=== PATIENT | female | born 1960 | race Caucasian/White ===

== ENCOUNTER 2022-01-08 17:24 | Emergency (ER) | payer OTHER, SELFPAY ==
[2022-01-08 17:45] VITALS: BP 189/109; PULSE 124; RESP 18; TEMP 36.9; O2SAT 99
--- NOTE | 2022-01-08 17:55 | PC.NURSE ---
1743 patient upset because she is worried her dog will be put down
[2022-01-08 17:57] VITALS: BP 189/109
[2022-01-08] MEDS: TETANUS,DIPHTHERIA,AC PERTUSSIS ADULT (0.5 ML) BOOSTRIX IM (18:48)
[2022-01-08 19:04] VITALS: BP 150/90; PULSE 104
--- NOTE | 2022-01-08 19:04 | ED.GENADULT ---
HPI - General Adult General Chief complaint: Skin/Abscess/Foreign Body Stated complaint: dog bite Time Seen by Provider: 01/08/22 17:31 Source: patient Mode of arrival: ambulatory Limitations: no limitations History of Present Illness HPI narrative: Patient presents for evaluation of lacerations to the face x2. She states she was cooking chicken and her dog jumped up to the food. She attempted to pull the chicken away and the dog bit her in the face. She now has a laceration to the left side of the face below the eye and another to let lower lip. She denies any significant pain. She states that the dog has never bit a human before. She called her friend, who is the dog's service dog trainer, and they came and took the dog to their house. Pt states her team was out of town but is on the way back home. She drove herself here for further evaluation. She states that dog is UTD on vaccinations. Pt believes her last tetanus was between 5-10 years ago. She is not diabetic. No additional complaints or concerns. Related Data Home Medications Medication Instructions Recorded Confirmed hydroxychloroquine 200 mg PO DAILY 01/08/22 01/08/22 levothyroxine 125 mcg PO DAILY 01/08/22 01/08/22 venlafaxine [Effexor XR] 37.5 mg PO DAILY 01/08/22 01/08/22 Allergies Allergy/AdvReac Type Severity Reaction Status Date / Time Penicillins Allergy Mild Hives Verified 01/08/22 17:54 Review of Systems Review of Systems: CONSTITUTIONAL: Denies fever, chills, or sweats. EYES: Denies visual changes, redness, or discharge. ENT: Reports lip laceration. Denies rhinorrhea, congestion, sore throat, or otalgia. CARDIOVASCULAR: Denies chest pain, palpitations, or edema. RESPIRATORY: Denies cough or dyspnea. GASTROINTESTINAL: Denies abdominal pain, nausea, vomiting, or diarrhea. GENITOURINARY: Denies dysuria or hematuria. SKIN: Reports left sided facial laceration. Denies rash or itching. MUSCULOSKELETAL: Denies back pain, joint pain, or myalgia. NEUROLOGIC: Denies headache, numbness, dizziness, or weakness. PSYCHIATRIC: Denies anxiety or depression. [facility] Past Medical History Medical History (Updated 01/08/22 @ 19:28 by LIUDMILA Stevenson, ) Depression Hypothyroidism Rheumatoid arthritis Surgical History Surgical History History of tubal ligation Hx of cholecystectomy Family History Family History Mother Family history non-contributory Social History Social History (Updated 01/08/22 @ 19:14 by José Miguel Dumas [facility], ) Smoking status: Never smoker Substance use: never Substance use type: does not use Living arrangements: with family Gender identity (if verbalized by the patient): Female Sexual Orientation (if Verbalized by the Patient): Straight or Heterosexual Spiritual care concerns: No Exam Narrative: GENERAL: Well-appearing, well-nourished, and in no acute distress. HEAD: Normocephalic EYES: PERRLA and EOMI. ENT: Nares clear, no rhinorrhea or epistaxis. Mucous membranes moist. Approximately 3 cm laceration to left lower lip extending through the myrna border and inferior to the lower lip but not into the chin. Oropharynx without tonsillar hypertrophy exudate or other lesions. Bilateral TMs pearly oleary nonbulging NECK: Supple. No adenopathy or masses. No carotid bruits or JVD CHEST: Clear to auscultation. No respiratory distress. No wheezes rales or rhonchi HEART: Regular rate and rhythm. No murmur heard. Normal peripheral pulses. ABDOMEN: Soft, nontender, nondistended, normal active bowel sounds. EXTREMITIES: Normal range of motion. No edema. SKIN: Approximately 2 cm laceration in flap formation to left side of the face, inferior to the left eye. Warm, dry, no rash. NEURO: No focal deficits. Alert and oriented x3. PSYCH: Normal mood and affect. Course Course Emergency Course: This i
== END 2022-01-08 19:04 | disposition home or self-care (01) ==
PROVIDERS: Emergency Provider Nurse Practitioner; PCP Family Medicine
DX: S01.511A Laceration without foreign body of lip, initial encounter (principal); S01.81XA Laceration without foreign body of other part of head, initial encounter; W54.0XXA Bitten by dog, initial encounter; Z23 Encounter for immunization; E03.9 Hypothyroidism, unspecified; M06.9 Rheumatoid arthritis, unspecified; F32.A Depression, unspecified
CPT/HCPCS: 12013; 90471; 90715; 99213; G0463

== ENCOUNTER 2022-01-14 11:47 | Emergency (ER) | payer OTHER, SELFPAY ==
--- NOTE | ~2022-01-14 | XR_ITS ---
EXAMINATION: XR chest 2V 01/14/2022 13:21 INDICATION: PROCEDURE: COMPARISON: FINDINGS: Bibasilar atelectasis. No focal pneumonia, edema, pleural effusion or pneumothorax. The car diomediastinal silhouette is within normal limits. There are no pleural effusions. There is no pneu mothorax suspected. IMPRESSION: 1: Bibasilar atelectasis. Reviewed, dictated and finalized at location B. SETTER IMPRESSION: 1: Bibasilar atelectasis.
[2022-01-14 11:51] VITALS: BP 198/100; PULSE 80; RESP 16; TEMP 36.7; O2SAT 99
[2022-01-14 12:30] VITALS: BP 164/99; PULSE 78; RESP 15; O2SAT 100
--- NOTE | 2022-01-14 12:45 | ED.RECABL ---
HPI - Recheck/Abnormal Lab/Rx General Chief Complaint: Recheck/Abnormal Lab/Rx <Char Newberry PA-C - Last Filed: 01/14/22 16:14> Stated Complaint: high blood pressure, no symptoms <Char Newberry PA-C - Last Filed: 01/14/22 16:14> Time Seen by Provider: 01/14/22 12:30 <Char Newberry PA-C - Last Filed: 01/14/22 16:14> Source: patient <Char Newberry PA-C - Last Filed: 01/14/22 16:14> Mode of arrival: ambulatory <KATT Meneses Last Filed: 01/14/22 16:14> Limitations: no limitations <Char Newberry PA-C - Last Filed: 01/14/22 16:14> History of Present Illness HPI narrative: This is a 61-year-old female, with past medical history of rheumatoid arthritis, asthma, and hypothyroidism, who presents to the ED from Dr. Liu's office for evaluation of hypertension. Patient saw the SOLAR ELECTRIC PRACTITIONER in Dr. Liu's office for the first time today, at which point her BP was noted to be elevated up to 215/126. Her BP upon arrival to the ED was 198/100 and 164/99 upon my evaluation. Patient is currently asymptomatic and denies any recent fatigue, weakness, headaches, vision changes, chest pain, shortness of breath, numbness/tingling, abdominal pain. She does mention she has had a stressful week as her pet dog bit her. She was seen at urgent care for this on 01/08 and received stitches in her left lower lip. She is currently on Augmentin for this and scheduled to have the sutures removed on January 19. <KATT Meneses Last Filed: 01/14/22 16:14> Related Data Home Medications: Home Medications Medication Instructions Recorded Confirmed hydroxychloroquine 200 mg PO DAILY 01/08/22 01/08/22 levothyroxine 125 mcg PO DAILY 01/08/22 01/08/22 venlafaxine [Effexor XR] 37.5 mg PO DAILY 01/08/22 01/08/22 <Char Newberry PA-C - Last Filed: 01/14/22 16:14> Allergies/Adverse Reactions: Allergies Allergy/AdvReac Type Severity Reaction Status Date / Time Penicillins Allergy Mild Hives Verified 01/14/22 12:31 <Char Newberry PA-C - Last Filed: 01/14/22 16:14> Review of Systems Review of Systems: CONSTITUTIONAL: Denies fever, chills, or sweats. EYES: Denies visual changes, redness, or discharge. CARDIOVASCULAR: Denies chest pain, palpitations, or edema. RESPIRATORY: Denies cough or dyspnea. GASTROINTESTINAL: Denies abdominal pain, nausea, vomiting, or diarrhea. GENITOURINARY: Denies dysuria or hematuria. MUSCULOSKELETAL: Denies back pain, joint pain, or myalgia. NEUROLOGIC: Denies headache, numbness, or weakness. <Char Newberry PA-C - Last Filed: 01/14/22 16:14> All systems reviewed & are unremarkable except as noted in HPI and below <Char Newberry PA-C - Last Filed: 01/14/22 16:14> [facility] Past Medical History Medical History: Medical History (Updated 01/14/22 @ 15:05 by Char Newberry PA-C) Asthma Depression Hypothyroidism Rheumatoid arthritis <Char Newberry PA-C - Last Filed: 01/14/22 16:14> Surgical History Surgical History: Surgical History (Updated 01/14/22 @ 13:06 by Char Newberry PA-C) History of carpal tunnel release of both wrists History of partial thyroidectomy History of tubal ligation Hx of cholecystectomy <Char Newberry PA-C - Last Filed: 01/14/22 16:14> Family History Family History: Family History Mother Family history non-contributory <Char Newberry PA-C - Last Filed: 01/14/22 16:14> Social History Social History: Social History Smoking status: Never smoker Substance use: never Substance use type: does not use Gender identity (if verbalized by the patient): Female Sexual Orientation (if Verbalized by the Patient): Straight or Heterosexual Spiritual care concerns: No <Char Newberry PA-C - Last Filed: 01/14/22 16:14> Exam Narrative: APPEARANCE: Well appearing, no pain in dis
--- NOTE | 2022-01-14 12:51 | ECG_ITS ---
Measurements Intervals [place] Rate: 76 P: 25 MA: 139 QRS: -30 QRSD: 101 T: -7 QT: 400 QTc: 450 Interpretive Statements SINUS RHYTHM DELAYED PRECORDIAL R/S TRANSITION VOLTAGE CRITERIA FOR LVH BORDERLINE T WAVE ABNORMALITY- INFERIOR LEADS BASELINE ARTIFACT- I, II, III, AVR, AVL, AVF, V1-V6 BORDERLINE ECG Electronically Signed On 01-14-2022 14:51:42 SENIOR SALES OPERATIONS ANALYST by Santos López D.O.
[2022-01-14 13:20] LABS: Basophils Absolute Auto 0.1 K/mm3 (0.0-0.1); Basophils Percent Auto 0.6 % (0.2-1.2); Eosinophils Absolute Auto 0.2 K/mm3 (0-0.3); Eosinophils Percent Auto 1.9 % (0-4.4); Hematocrit 44.3 % (37.0-47.0); Hemoglobin 14.2 g/dL (12.0-15.0); Immature Granulocyte Absolute 0.03 K/mm3 (0.00-0.031); Immature Granulocyte Percent A 0.4 % (0-0.5); Lymphocytes Absolute Auto 1.69 K/mm3 (0.9-3.2); Lymphocytes Percent Auto 21.6 % (18.3-44.2); Mean Corpuscular HGB Conc 32.1 g/dl (32-36); Mean Corpuscular Hemoglobin 28.4 pg (26-34); Mean Corpuscular Volume 88.6 fl (80-100); Monocytes Absolute Auto 0.6 K/mm3 (0.1-0.6); Monocytes Percent Auto 7.5 % (2.6-8.5); Neutrophils Absolute Auto 5.3 K/mm3 (1.3-6.7); Platelet Count Result 353 k/mm3 (150-375); White Blood Count 7.8 K/mm3 (4.5-10.0)
[2022-01-14 13:30] LABS: Add Urine Microscopic? YES; Appearance Urine Cloudy (Clear); Bilirubin Urine Negative (Negative); Blood Urine Negative (Negative); Color Urine Yellow (Yellow); Glucose Urine UA Negative (Negative); Ketones Urine Negative (Negative); Leukocyte Esterase Ur Negative LEU/UL (Negative); Mucus Urine Rare /lpf; Nitrate Urine Negative (Negative); Protein Urine Negative (Negative); Specific Grav Ur 1.008 (1.001-1.035); Squamous Epithelial Cell Urine Rare /hpf (Few); Urobilinogen Urine Negative mg/dL (<2.0); WBC Urine 0-3 /hpf
[2022-01-14 13:36] VITALS: BP 195/89; PULSE 73; RESP 17; O2SAT 100
[2022-01-14 13:39] LABS: Anion Gap 7 mmol/L (8-16); Blood Urea Nitrogen 11 mg/dL (7-17); Calcium 9.5 mg/dL (8.4-10.2); Carbon Dioxide 30 mmol/L (22-30); Chloride 103 mmol/L (98-107); Estimated CRCL calculation 90 ml/min; Estimated Glomerular Filt Rate > 60; Glucose 96 mg/dL (65-110); Potassium 3.4 mmol/L (3.4-5.0); Sodium 140 mmol/L (137-145)
[2022-01-14 14:15] VITALS: BP 172/93; PULSE 70; RESP 18; O2SAT 100
[2022-01-14 15:36] LABS: Partial Thromboplastin Time 22.8 SECONDS (22.3-36.8)
[2022-01-14 15:41] LABS: INR 0.9; Prothrombin Time 12.2 Seconds (11.1-14.7)
--- NOTE | 2022-01-14 15:44 | PC.NURSE ---
1505 Report received from ANABELL Brown.
[2022-01-14 16:05] LABS: Troponin I < 0.012 ng/mL (0.000-0.034)
[2022-01-14 16:23] VITALS: BP 176/89; PULSE 74; RESP 16; O2SAT 100
== END 2022-01-14 16:23 | disposition home or self-care (01) ==
PROVIDERS: Physician Assistant; Emergency Provider General Practice; PCP Family Medicine
DX: I10 Essential (primary) hypertension (principal); J45.909 Unspecified asthma, uncomplicated; E03.9 Hypothyroidism, unspecified; M06.9 Rheumatoid arthritis, unspecified; F32.A Depression, unspecified; R94.31 Abnormal electrocardiogram [ECG] [EKG]
CPT/HCPCS: 36415; 71046; 80048; 81001; 84484; 85025; 85610; 85730; 93005; 99284

== ENCOUNTER 2022-05-30 10:03 | Outpatient (CLI) | payer OTHER, SELFPAY ==
--- NOTE | 2022-05-30 | EST_ITS ---
Patient Info Name: Margareth Cordero Age: 62 years : 1960 Gender: Female Ht: 67 in Wt: 206 lbs BSA: 2.13 m2 HR: 67 bpm BP: 123 / 73 mmHg Heart Rhythm: Sinus Rhythm Exam Date: 05/30/2022 10:43 AM Exam Location: [facility] Stress Patient Status: Outpatient Admit Date: 05/30/2022 Staff Ordering Physician: Marissa, Austin Romano APRN Attending Provider: MicheleAustin APRN Exercise Technologist: Shazia Sanchez, CT Nurse: DIO MITCHELL Exam Type: CA stress test treadmill Study Info Indications R42 - Dizziness and giddiness R55 - Syncope and collapse A treadmill exercise stress test was performed. Summary 1. No abnormal ST/T wave changes with exercise. 2. No arrhythmias were observed during the examination. 3. No chest discomfort with stress test. 4. Maximal treadmill stress ECG study achieving 94% of age predicted maximum heart rate and 6.2 METS peak exercise. 5. Exercise capacity fair to good at 6-10 METS. 6. Below-average exercise capacity age. 7. Becker treadmill score of +3 indicating intermediate risk for adverse cardiovascular events the next 5 years. Clinical correlation advised. No imaging ordered in association with this study. Protocol: [facility] Stress ECG Details Stage: REST Duration (min): 1 min : 6 sec Speed (mph): 0.0 Grade (%): 0 HR (bpm): 76 SBP (mmHg): 123 DBP (mmHg): 73 METS: --- Stage: REST Duration (min): 7 min : 12 sec Speed (mph): 0.0 Grade (%): 0 HR (bpm): 76 SBP (mmHg): 123 DBP (mmHg): 73 METS: --- Stage: STAGE 1 Duration (min): 1 min : 0 sec Speed (mph): 1.7 Grade (%): 10 HR (bpm): 104 SBP (mmHg): 123 DBP (mmHg): 73 METS: --- Stage: STAGE 1 Duration (min): 2 min : 0 sec Speed (mph): 1.7 Grade (%): 10 HR (bpm): 125 SBP (mmHg): 123 DBP (mmHg): 73 METS: --- Stage: STAGE 1 Duration (min): 3 min : 0 sec Speed (mph): 1.7 Grade (%): 10 HR (bpm): 136 SBP (mmHg): 171 DBP (mmHg): 62 METS: --- Stage: STAGE 2 Duration (min): 0 min : 58 sec Speed (mph): 2.5 Grade (%): 12 HR (bpm): 149 SBP (mmHg): 171 DBP (mmHg): 62 METS: --- Stage: RECOVERY Duration (min): 0 min : 1 sec Speed (mph): 1.5 Grade (%): 0 HR (bpm): 149 SBP (mmHg): 171 DBP (mmHg): 62 METS: --- Stage: RECOVERY Duration (min): 1 min : 1 sec Speed (mph): 0.0 Grade (%): 0 HR (bpm): 134 SBP (mmHg): 171 DBP (mmHg): 62 METS: --- Stage: RECOVERY Duration (min): 2 min : 1 sec Speed (mph): 0.0 Grade (%): 0 HR (bpm): 121 SBP (mmHg): 171 DBP (mmHg): 62 METS: --- Stage: RECOVERY Duration (min): 3 min : 1 sec Speed (mph): 0.0 Grade (%): 0 HR (bpm): 109 SBP (mmHg): 170 DBP (mmHg): 60 METS: --- Stage: RECOVERY Duration (min): 3 min : 37 sec Speed (mph): 0.0 Grade (%): 0 HR (bpm): 104 SBP (mmHg): 170 DBP (mmHg): 60 METS: -
== END 2022-05-30 10:04 | disposition home or self-care (01) ==
LOC: ANHCARD 10:04
PROVIDERS: PCP Family Medicine; Visit Provider Nurse Practitioner Adult Health
DX: R55 Syncope and collapse (principal); R42 Dizziness and giddiness
CPT/HCPCS: 93017

== ENCOUNTER 2023-02-24 07:01 | Outpatient (CLI) | payer OTHER, SELFPAY ==
--- NOTE | 2023-02-24 | ECG_ITS ---
Measurements Intervals [place] Rate: 75 P: 35 ID: 150 QRS: -25 QRSD: 90 T: 26 QT: 362 QTc: 406 Interpretive Statements SINUS RHYTHM BASELINE ARTIFACT POSSIBLE SEPTAL MYOCARDIAL INFARCTION , OF INDETERMINATE AGE [30 ms Q WAVE IN V1/V2] BORDERLINE ECG COMPARED TO ECG 01/14/2022 13:08:58 NO SIGNIFICANT CHANGES Electronically Signed On 02-25-2023 14:48:15 CDT by Hubert Win M.D.
== END 2023-02-24 07:02 | disposition home or self-care (01) ==
LOC: ANHCARD 07:03
PROVIDERS: PCP Family Medicine; Visit Provider Podiatrist Foot & Ankle Surgery
DX: R03.0 Elevated blood-pressure reading, without diagnosis of hypertension (principal); R94.31 Abnormal electrocardiogram [ECG] [EKG]
CPT/HCPCS: 93005